=== PATIENT | female | born 1985 | race Caucasian/White ===

== ENCOUNTER 2016-12-30 19:12 | Emergency (ER) | payer OTHER ==
[~2016-12-30 19:12] MED LIST: ADDERALL; ALDOMET250 MG PO; AMOXIL400 MG/51 PO; BACTRIM 400-801 TA1 PO; BACTRIM DS TABL1 TA1 PO; BACTRIM DS TABL1 TAB PO; BACTROBAN15 GM NS; BACTROBAN22 GM; CHLORHEXIDINE118 M1 TP; CIPRO PO; CLEOCIN HCL300 M1 PO; CLEOCIN PO; DARVOCET-N 1001 TAB PO; DIAZEPAM PO; FAMOTIDINE PO; FLOXIN10 ML OT; HYDROCODON-ACE1 EAC1 PO; IBUPROFEN PO; IBUPROFEN800 MG PO; INDOMETHACIN50 MG PO; KEFLEX PO; KEFLEX500 M1 PO; KEFLEX500 MG PO; LORTAB 5/500 TA1 TA1 PO; LORTAB 7.5-5001 TAB PO; NO MEDICATIONS; NORVASC PO; PEPCID AC20 MG PO; PERCOCET5/325 PO; PHENERGAN PO; PHENERGAN25 MG PO; PRENATAL MULITV1 TAB PO; PRENATAL1 TA1 PO; PRILOSEC20 MG PO; PROZAC; REGLAN10 MG PO; TYLOX 5/500 CAP1 CAP PO; ULTRAM PO; VIBRAMYCIN100 M1 PO; VICODIN 5/1 TAB 5/50 DOB; VICODIN 5/1 TAB 5/50 PO; VICODIN 5/500 T1 TAB PO; VICODIN PO; VOLTAREN75 MG PO
== END 2016-12-30 23:45 | disposition left against medical advice (07) ==
LOC: CED 19:12
DX: Z53.21 Procedure and treatment not carried out due to patient leaving prior to being seen by health care provider (principal)

== ENCOUNTER 2017-03-22 16:01 | Emergency (ER) | payer OTHER ==
--- NOTE | ~2017-03-22 | CR126 ---
[facility] A Service of [facility] RADIOLOGY TEXT RESULTS PATIENT: EMELIA CERNA LOCATION: [facility] [place] : [birth year] UNIT #: [id number] AGE: [address]: Kate Soto SEX: F ORDER DR: [id number] [address] [address] [id number] MR#: [id number] Acc #: [id number] NAME: EMELIA CERNA : 1985 SEX: F STUDY DATE/TIME: 03/22/2017 16:27 UNIT: SED ROOM: STUDY DESCRIPTION: CR Foot Complete Min 3 View Lt Attending Physician: Kate Soto Pa-C Ordering Physician: Kate Soto Pa-C Primary Care Physician: Jayant Johnston M.D. MEDICAL IMAGING REPORT This report is preliminary unless electronic signature is present. EXAM Left foot series dated 03/22/2017 COMPARISON Left ankle series dated 03/22/2017. HISTORY Patient fell 2 days ago with pain and swelling in the posterolateral aspect of the left ankle. FINDINGS Three views of the left foot were obtained. No acute displaced fracture, dislocation or destructive bony mass. There is history of soft tissue swelling along the lateral aspect of the left ankle. Based on this modality, there is probably mild swelling seen. There is also suspicious mild swelling in the soft tissues around the fifth normal-appearing metatarsophalangeal joint. IMPRESSION 1. Bones are within normal limits. 2. There is probably minimal soft tissue swelling along the lateral aspect of the left ankle and foot given the history. 3. Minimal soft tissue swelling around the fifth metatarsophalangeal joint cannot be excluded. Dictated by... Luis Fernando Lindo M.D. THIS IS AN ELECTRONICALLY VERIFIED REPORT Luis Fernando Lindo M.D. at 03/27/2017 11:34 AM CPR/mjs [facility] A Service [facility] RADIOLOGY TEXT RESULTS PATIENT: EMELIA CERNA LOCATION: SED : 87 UNIT #: [id number] AGE: [address]: Kate Soto SEX: F ORDER DR: TD: 03/23/2017 06:10 JOB #: [id number] MEDICAL IMAGING REPORT Page 1 of 1
--- NOTE | ~2017-03-22 | CR20 ---
[facility]. [facility] A Service of [facility] & [facility] RADIOLOGY TEXT RESULTS PATIENT: EMELIA CERNA LOCATION: SED : [birth year] UNIT #: [id number] AGE: [address]: Kate Soto SEX: F ORDER DR: [id number] [address] [address] [id number] E MR#: [id number] Acc #: [id number] NAME: EMELIA CERNA : 1985 SEX: F STUDY DATE/TIME: 03/22/2017 16:27 UNIT: SED ROOM: STUDY DESCRIPTION: CR Ankle Min 3 Views Lt Attending Physician: Kate Soto Pa-C Ordering Physician: Kate Soto Pa-C Primary Care Physician: Jayant Johnston M.D. MEDICAL IMAGING REPORT This report is preliminary unless electronic signature is present. EXAM Left ankle series dated 03/22/2017 COMPARISON Left ankle series dated 01/16/2012. HISTORY Posterolateral foot and ankle pain with swelling for the last 2 days. Post trauma. FINDINGS Three views of the left ankle were obtained. No acute displaced fracture, dislocation or destructive bony mass. There is history of swelling in the lateral aspect of the left ankle. It is barely seen in this modality. Talar dome and ankle mortise are intact. IMPRESSION No acute displaced fracture or dislocation. Dictated by... Luis Fernando Lindo M.D. THIS IS AN ELECTRONICALLY VERIFIED REPORT Luis Fernando Lindo M.D. at 03/27/2017 11:34 AM CPR/zafar TD: 03/23/2017 05:57 JOB #: [id number] MEDICAL IMAGING REPORT Page 1 of 1
[2017-03-22] MEDS ORDERED: NEURONTIN PO (16:10)
== END 2017-03-22 17:29 | disposition home or self-care (01) ==
LOC: SED 16:01
DX: S93.402A Sprain of unspecified ligament of left ankle, initial encounter (principal); F41.9 Anxiety disorder, unspecified; I10 Essential (primary) hypertension; F17.210 Nicotine dependence, cigarettes, uncomplicated; X50.1XXA Overexertion from prolonged static or awkward postures, initial encounter; Y92.009 Unspecified place in unspecified non-institutional (private) residence as the place of occurrence of the external cause
CPT/HCPCS: 29515; 73610; 73630; 99283